=== PATIENT | male | born 1965 ===

== ENCOUNTER 2016-08-20 23:34 | Emergency (ER) | payer OTHER ==
[2016-08-20] MEDS ORDERED: INSULIN HUMAN REGULAR 100 U/ML SOL SC SCH (23:45)
[2016-08-20 23:52] VITALS: RESP 18; TEMP 97
[2016-08-21] MEDS ORDERED: INSULIN HUMAN REGULAR 100 U/ML SOL ONE (00:02)
[2016-08-21 01:43] VITALS: BP 109/79; PULSE 85; O2SAT 97
== END 2016-08-21 01:05 | disposition home or self-care (01) ==
LOC: ED 23:34
DX: E11.649 Type 2 diabetes mellitus with hypoglycemia without coma (principal); Z79.4 Long term (current) use of insulin
CPT/HCPCS: 99283 ×2; 82962; J1815; 96372; 99284

== ENCOUNTER 2016-12-24 11:53 | Emergency (ER) | payer OTHER ==
[2016-12-24 11:53] VITALS: O2SAT 97
[2016-12-24 12:08] VITALS: BP 123/91; PULSE 109; RESP 20; TEMP 98
== END 2016-12-24 13:51 | disposition home or self-care (01) ==
LOC: ED 11:53
DX: E13.621 Other specified diabetes mellitus with foot ulcer (principal); L97.519 Non-pressure chronic ulcer of other part of right foot with unspecified severity; B35.1 Tinea unguium
CPT/HCPCS: 87070; 87077; 87186; 99282; 99284; A6232; A6402; A6446

== ENCOUNTER 2018-08-08 12:49 | Emergency (ER) | payer OTHER ==
[2018-08-08 12:50] VITALS: O2SAT 96
[2018-08-08 13:12] VITALS: BP 118/84; PULSE 108; RESP 22; TEMP 98.5
[2018-08-08] MEDS ORDERED: LIDOCAINE HCL 1% MDV 50 ML SOL SC ONE (14:00)
[2018-08-08] MEDS ORDERED: LIDOCAINE HCL 1% MPF 30 SOL ONE (14:06)
[2018-08-08] MEDS ORDERED: BACITRACIN 500 U/GM OIN TOP ONE ×2 (14:29→14:39)
== END 2018-08-08 14:50 | disposition home or self-care (01) | DRG 605 ==
LOC: ED 12:49
DX: S61.211A Laceration without foreign body of left index finger without damage to nail, initial encounter (principal); Z79.4 Long term (current) use of insulin; E11.9 Type 2 diabetes mellitus without complications
CPT/HCPCS: 12011; 73130; 99283; A9270-GY; J2001